=== PATIENT | male | born 2000 | race Caucasian/White ===

== ENCOUNTER 2020-12-07 15:04 | Outpatient (CLI) | payer OTHER, SELFPAY ==
--- NOTE | ~2020-12-07 | XR_ITS ---
EXAMINATION: XR wrist RT min 3V DATE: 12/07/2020 15:21 INDICATION: Chronic ulnar-sided right wrist pain with numbness extending into the fingers. TECHNIQUE: Posteroanterior, ulnar deviation, oblique, and lateral views of the right wrist were obtai lesley. COMPARISON: 04/26/2016 FINDINGS: Alignment is normal. No fracture. Joint spaces are normal. Soft tissues are unremarkable. IMPRESSION: 1. Negative right wrist radiographs. Reviewed, dictated and finalized at location A.
== END 2020-12-07 15:05 | disposition home or self-care (01) ==
PROVIDERS: PCP Family Medicine; Visit Provider Nurse Practitioner Family
DX: M25.531 Pain in right wrist (principal)
CPT/HCPCS: 73110

== ENCOUNTER → 2021-06-07 16:39 | Outpatient (CLI) | payer OTHER, SELFPAY ==
--- NOTE | ~2021-06-07 | XR_ITS ---
XR wrist RT min 3V DATE: 06/07/2021 16:51 INDICATION: Right wrist pain TECHNIQUE: 4 views COMPARISON: 12/07/2020 right wrist FINDINGS: No fracture or dislocation, periosteal reaction or bone destruction. Joint spaces are prese rved. No erosive change or chondrocalcinosis. IMPRESSION: Negative Reviewed, dictated and finalized at location A. IMPRESSION: Negative
== END ==
PROVIDERS: PCP Nurse Practitioner Family; Visit Provider Family Medicine
DX: M25.531 Pain in right wrist (principal)
CPT/HCPCS: 73110

== ENCOUNTER 2024-09-04 13:20 | Emergency (ER) | payer OTHER, SELFPAY ==
--- OUTSIDE RECORDS SUMMARY | 2024-09-04 13:23 | XMS_ITS | Clinical Summary ---
Author Organization [facility] Address [address] [place] [address] Care Team Providers Care Criminal Defense Attorney Name Role Phone Aspen Garnica MD Unavailable [phone] Aspen Garnica MD Primary Care Provider [phone] Source Comments [facility],non-owned Affiliates and Associated Physician Practices is amultiple site organization consisting of ambulatory clinics and hospital sitesin [place], [place], [place] and [place]. This disclosure is being madepursuant to the Care Everywhere program and may not contain all information available regarding this patient. Last updated 18.[facility] Allergies No known active allergies Medications * Be aware that medications may not be up to date on this document. Alwaysverify current medications with the patient. Medication Sig Dispensed Refills Start Date End Date Status fexofenadine (RUTH) 180 MG tablet Take 180 mg by mouth once daily Reported on 10/09/2016 Active Active Problems No known active problems Immunizations Name Administration Dates Next Due DTaP VACCINE IM (6wk-6yrs) 01/18/2005,,2000,08/13,2000 HEP A PEDS 2 DOSE 04/24/2011,04/10/2007 HEP B VACCINE, PED/ADOL 2000,2000, HIB BOOSTER 11/06/2001, 1,2000,05/09 Human Papilloma Virus Iftikhar valent Vaccine 09/15/2012,05/12/2012,03/14/2012 Influenza Nasal 05/12/2012 MENINGOCOCCAL CONJUGATE (MCV4P) 10/12/2016,03/14 MMR 01/18/2005,03/10/2001 PNEUMOCOCCAL CONJ, PEDS 2000,2000, POLIO IPV 01/18/2005, 1,2000,05/09 PPD 01/18/2005,03/10/2001 TDAP (7yrs+) 04/24/2011 VARICELLA 04/10/2007,06/19/2001 Family History Medical History Relation Name Comments Allergies Brother Allergies Father Hypertension Father Heart Disease Maternal Grandfather Stroke Maternal Grandfather Cancer Maternal Grandmother Lung Thyroid Disease Maternal Grandmother Allergies Mother Migraine Mother Other Mother Hearing Loss Thyroid Disease Mother Heart Disease Paternal Grandfather Allergies Sister Relation Name Status Comments Brother Father Maternal Grandfather Maternal Grandmother Mother Paternal Grandfather Sister Social History Tobacco Use Types Packs/Day Years Used Date Smoking Tobacco: Never Smokeless Tobacco: Never Alcohol Use Standard Drinks/Week Comments Not Asked 0 (1 standard drink = 0.6 oz pur e alcohol) Sex and Gender Information Value Date Recorded Sex Assigned at Not on file Gender Identity Not on file Sexual Orientation Not on file Last Filed Vital Signs Vital Sign Reading Time Taken Comments Blood Pressure 126/68 10/09/2016 1:32 PM SUPERVISOR HOME ENERGY CONSULTANT Pulse 72 10/10/2015 4:06 PM SUPERVISOR HOME ENERGY CONSULTANT irreg ular Temperature 37.3 ??C (99.1 ??F) 10/12/2016 3:48 PM CS T Respiratory Rate - - Oxygen Saturation - - Inhaled Oxygen Concentration - - Weight 66.9 kg (147 lb 6.4 oz) 10/09/2016 1:32 P M SUPERVISOR HOME ENERGY CONSULTANT Height 177.8 cm (5' 10 ) 10/09/2016 1:32 PM SUPERVISOR HOME ENERGY CONSULTANT Body Mass Index 21.15 10/09/2016 1:32 PM SUPERVISOR HOME ENERGY CONSULTANT Plan of Treatment Health Maintenance Due Date Last Done Comments HIV SCREENING 2015 HEPATITIS C SCREENING 03/05/2018 DTAP/TDAP/TD VACCINES (7 - Td or Tdap) 04/24/2021 04/24/2011, 01/18/2005, 11/06/2001, Additional history exists COVID-19 VACCINE ( season) 2024 INFLUENZA VACCINE (#1) 2024 05/12/2012 DEPRESSION SCREENING 08/05/2024 ZOSTER VACCINE (1 of 2) 2050 HEPATITIS B VACCINE Completed 2000, 2000, 2000 PNEUMOCOCCAL VACCINE Aged Out 2000, 2000, 2000 No longer eligible based on patient's age to complete this topic HIB VACCINE Completed 11/06/2001, 12/03, 2000, Additional history exists HPV VACCINE Completed 09/15/2012, 03/2012, 03/14/2012 MENINGOCOCCAL VACCINE Completed 10/12/2016, 012 MENINGOCOCCAL (Group B) VACCINE Aged Out No longer eligible based on patient's age to complete this topic Goals Goal Patient Goal Type Associated Problems Recent Progress Patient-Stated? Author [facility] Lifestyle: Use safety retraint in car Lifestyle On track( 017 1:34 PM SUPERVISOR HOME ENERGY CONSULTANT) Karen Jo RN Care Teams Criminal Defense Attorney Relationship Specialty Start Date End Date Aspen Garnica MD PCP - Pediatrics 08/22/09 Aspen Garnica MD PCP - General Pediatrics 02/21/12
--- OUTSIDE RECORDS SUMMARY | 2024-09-04 13:23 | XMS_ITS | Referral Summary ---
Author Organization [email or web address] Address [address] [place] [address] Care Team Providers Care Prn Occupational Therapist Name Role Phone Aspen Garnica MD Unavailable [phone] Aspen Garnica MD Primary Care Provider [phone] Source Comments [facility],non-owned Affiliates and Associated Physician Practices is amultiple site organization consisting of ambulatory clinics and hospital sitesin [place], [place], [place] and [place]. This disclosure is being madepursuant to the Care Everywhere program and may not contain all information available regarding this patient. Last updated 18.[email or web address] Allergies No known active allergies Medications * [...] PPD 01/18/2005,03/10/2001 TDAP (7yrs+) 04/24/2011 VARICELLA 04/10/2007,06/19/2001 Social History Tobacco Use Types Packs/Day Years [...] Comments Blood Pressure 126/68 10/09/2016 1:32 PM DISTRICT MANAGER Pulse 72 10/10/2015 4:06 PM DISTRICT MANAGER irreg ular Temperature 37.3 ??C (99.1 ??F) 10/12/2016 3:48 PM CS T Respiratory Rate - - Oxygen Saturation - - Inhaled Oxygen Concentration - - Weight 66.9 kg (147 lb 6.4 oz) 10/09/2016 1:32 P M DISTRICT MANAGER Height 177.8 cm (5' 10 ) 10/09/2016 1:32 PM DISTRICT MANAGER Body Mass Index 21.15 10/09/2016 1:32 PM DISTRICT MANAGER Plan of Treatment Not on file Goals Goal Patient Goal Type Associated Problems Recent Progress Patient-Stated? Author [facility] Lifestyle: Use safety retraint in car Lifestyle On track( 017 1:34 PM DISTRICT MANAGER) Karen Jo, ULYSSES Care Teams Prn Occupational Therapist Relationship Specialty Start Date End Date Aspen Garnica MD PCP - Pediatrics 08/22/09 Aspen Garnica MD PCP - General Pediatrics 02/21/12
--- OUTSIDE RECORDS SUMMARY | 2024-09-04 13:23 | XMS_ITS | Patient Health Summary ---
Author Organization [facility] Address [address] [place] [address] Care Team Providers Care Supervisor Taping Name Role Phone Aspen Garnica MD Unavailable [phone] Aspen Garnica MD Primary Care Provider [phone] Note from [facility],non-owned Affiliates and Associated Physician Practices is amultiple site organization consisting of ambulatory clinics and hospital sitesin [place], [place], [place] and [place]. This disclosure is being madepursuant to the Care Everywhere program and may not contain all information available regarding this patient. Last updated 18.[facility] Allergies No known active allergies Medications * Be aware that medications may not be up to date on this document. Alwaysverify current medications with the patient. * fexofenadine (RUTH) 180 MG tablet Take 180 mg by mouth once daily Reported on 10/09/2016 Active Problems No known active problems Immunizations * DTaP VACCINE IM (6wk-6yrs)(Given 01/18/2005, 11/06/2001, 2000, 2000, 2000) * HEP A PEDS 2 DOSE(Given 04/24/2011, 04/10/2007) * HEP B VACCINE, PED/ADOL(Given 2000, 2000, 2000) * HIB BOOSTER(Given 11/06/2001, 2000, 2000, 2000) * Human Papilloma Virus Quadrivalent Vaccine(Given 09/15/2012, 05/12/2012, 03/14/2012) * Influenza Nasal(Given 05/12/2012) * MENINGOCOCCAL CONJUGATE (MCV4P)(Given 10/12/2016, 03/14/2012) * MMR(Given 01/18/2005, 03/10/2001) * PNEUMOCOCCAL CONJ, PEDS(Given 2000, 2000, 2000) * POLIO IPV(Given 01/18/2005, 06/19/2001, 2000, 2000) * PPD(Given 01/18/2005, 03/10/2001) * TDAP (7yrs+)(Given 04/24/2011) * VARICELLA(Given 04/10/2007, 06/19/2001) Social History Tobacco Use Types Packs/Day Years [...] Comments Blood Pressure 126/68 10/09/2016 1:32 PM OIL WELL SHOOTER Pulse 72 10/10/2015 4:06 PM OIL WELL SHOOTER irreg ular Temperature 37.3 ??C (99.1 ??F) 10/12/2016 3:48 PM CS T Respiratory Rate - - Oxygen Saturation - - Inhaled Oxygen Concentration - - Weight 66.9 kg (147 lb 6.4 oz) 10/09/2016 1:32 P M OIL WELL SHOOTER Height 177.8 cm (5' 10 ) 10/09/2016 1:32 PM OIL WELL SHOOTER Body Mass Index 21.15 10/09/2016 1:32 PM OIL WELL SHOOTER Procedures * ANNIA-BULL VIRUS ANTIBODY PANEL(Performed 10/22/2014) Performed for Pharyngitis, acute, Fever presenting with conditions classified elsewhere * MONONUCLEOSIS SCREEN(Performed 10/22/2014) Performed for Pharyngitis, acute, Fever presenting with conditions classified elsewhere * CBC W AUTO DIFFERENTIAL(Performed 10/22/2014) Performed for Pharyngitis, acute, Fever presenting with conditions classified elsewhere * DRUG ABUSE URINE SCREEN 10(Performed 08/20/2014) Performed for Sleeping difficulties * XR FINGER(S) RIGHT(Performed 07/09/2013) Performed for Injury of right thumb * INFLUENZA A+B - POINT OF CARE (AMB)(Performed 09/16/2012) Performed for Back pain, Fever presenting with conditions classified elsewhere * XR LUMBAR SPINE 4VW OR MORE(Performed 09/16/2012) Performed for Back pain Results * MONONUCLEOSIS SCREEN (10/22/2014 4:51 PM CDT) Mononucleosis Test Qualitative Negative Negative [facility] INSURANCE BILL Comment: The sensitivity of Heterophile antibody testing is 80-90%. Annia Bull IgM testing offers higher sensitivity. Blood specimen (specimen) BLOOD SPECIMEN / Unknown 10/22/2014 4:51 PM CDT 10/22/2014 7:06 PM CDT Narrative Resulting Agency Comment [facility] [address] ??[facility] [phone] Aspen Garnica MD LAB - CHEMISTRY CARL MOORE [facility] INSURANCE BILL * ANNIA-BAR VIRUS PANEL (10/22/2014 4:51 PM CDT) Pathologist [facility] Annia-Bull Viral Capsid Antigen Antibody IgM <36.0 0.0 - 35.9 U/mL [facility] INSURANCE BILL Comment: ?Negative ?<36.0 ?Equivocal 36.0 - 43.9 ?Positive ?>43.9 Annia-Bull Virus Early Antigen Antibody IgG <9.0 0.0 - 8.9 U/mL [facility] INSURANCE BILL Comment: ?Negative ?< 9.0 ?Equivocal ??9.0 - 10.9 ?Positive ?>10.9 Annia-Bull Viral Capsid Antigen Antibody IgG <18.0 0.0 - 17.9 U/mL [facility] INSURANCE BILL Comment: ?Negative ?<18.0 ?Equivocal 18.0 - 21.9 ?Positive ?>21.9 Annia-Bull Virus Antibody IgG Nuclear Antigen <18.0 0.0 - 17.9 U/mL [facility] INSURANCE BILL Comment: ?Negative ?<18.0 ?Equivocal 18.0 - 21.9 ?Positive ?>21.9 Interpretation [facility] INSURANCE BILL Comment: ?EBV Interpretation Chart ?. ? Interpretation ?? EBV-IgM ??EA(D)-IgG ??VCA-IgG ??EBNA-IgG ?. ? EBV Seronegative ?- ?- ? - ?- ? Early Phase ? + ?- ? - ?- ? Acute Primary ? + ? +or- ? + ?- ? Infection ? Convalescence/Past ??- ? +or- ? + ?+ ? Infection ? Reactivated ?+or- ?+ ? + ?+ ? Infection ?+ Antibody Present ?- Antibody Absent Blood specimen (specimen) BLOOD SPECIMEN / Unknown 10/22/2014 4:51 PM CDT 10/22/2014 7:06 PM CDT Narrative Resulting Agency Comment [facility] [place] [address] ??[place] [phone] Aspen Garnica MD LAB - CHEMISTRY CARL MOORE [facility] INSURANCE BILL * CBC W AUTO DIFFERENTIAL (10/22/2014 4:51 PM CDT) WBC 6.1 3.4 - 10.8 x10E3/uL [facility] INSURANCE BILL RBC 5.33 4.14 - 5.80 x10E6/uL [facility] INSURANCE BILL Hemoglobin 15.7 12.6 - 17.7 g/dL [facility] INSURANCE BILL Hematocrit 46.1 37.5 - 51.0 % [facility] INSURANCE BILL MCV 87 79 - 97 fL [facility] INSURANCE BILL MCH 29.5 26.6 - 33.0 pg [facility] INSURANCE BILL MCHC 34.1 31.5 - 35.7 g/dL [facility] INSURANCE BILL RDW 13.1 12.3 - 15.4 % [facility] INSURANCE BILL Platelet Count 230 150 - 379 x10E3/uL [facility] INSURANCE BILL Granulocytes % 62 % [facility] INSURANCE B[facility] Lymphocytes % 21 % [facility] INSURANCE B[facility] Monocytes % 13 % [facility] INSURANCE BILL Eosinophils % 4 % [facility] INSURANCE BILL Basophils % 0 % [facility] INSURANCE BILL Immature Cells NOT NEEDED [facility] INSURANCE BILL Comment:Ancillary determined the test is not needed Granulocytes Absolute 3.8 1.4 - 7.0 x10E3/uL [facility] INSURANCE BILL Lymphocytes Absolute 1.3 0.7 - 3.1 x10E3/uL [facility] INSURANCE BILL Monocytes Absolute 0.8 0.1 - 0.9 x10E3/uL [facility] INSURANCE BILL Eosinophils Absolute 0.2 0.0 - 0.4 x10E3/uL [facility] INSURANCE BILL Basophils Absolute 0.0 0.0 - 0.3 x10E3/uL [facility] INSURANCE BILL Immature Granulocytes 0 % [facility] INSURANCE BILL Immature Granulocytes Absolute 0.0 0.0 - 0.1 x10E3/uL [facility] INSURANCE BILL nRBC NOT NEEDED [facility] INSURANCE BILL Comment:Ancillary determined the test is not needed Comment Hematology NOT NEEDED [facility] INSURANCE BILL Comment:Ancillary determined the test is not needed Blood specimen (specimen) BLOOD SPECIMEN / Unknown 10/22/2014 4:51 PM CDT 10/22/2014 7:06 PM CDT Narrative Resulting Agency Comment [facility] ??[facility] [phone] Aspen Garnica MD LAB - HEMATOLOGY ORD ERABLES [facility] INSURANCE BILL * DRUG ABUSE URINE SCREEN 10 (08/20/2014 3:06 PM OIL WELL SHOOTER) Amphetamines Screen Urine Negative Cutoff=10 00 ng/mL [facility] INSURANCE BILL Barbiturates Screen Urine Negative Cutoff=20 0 ng/mL [facility] INSURANCE BILL Benzodiazepines Screen Urine Negative Cutoff=20 0 ng/mL [facility] INSURANCE BILL Cannabinoids Screen Urine Negative Cutoff=20 ng/mL [facility] INSURANCE BILL Cocaine Negative Cutoff=30 0 ng/mL [facility] INSURANCE BILL Opiate Screen Urine Negative Cutoff=30 0 ng/mL [facility] INSURANCE BILL Comment:Opiate test includes Codeine, Morphine, Hydromorphone, Hydrocodone. Oxycodone/Oxymorpho ne Urine Negative Cutoff=10 0 ng/mL [facility] INSURANCE BILL Comment:Test includes Oxycod one and Oxymorphone Phencyclidine Negative Cutoff=25 ng/mL [facility] INSURANCE BILL Methadone Negative Cutoff=30 0 ng/mL [facility] INSURANCE BILL Propoxyphene Screen Urine Negative Cutoff=30 0 ng/mL [facility] INSURANCE BILL Creatinine Urine 161.7 20.0 - 300.0 mg/dL [facility] INSURANCE BILL pH Urine 5.7 4.5 - 8.9 [facility] INSURANCE BILL Note [facility] INSURANCE BILL Comment: This assay provides a preliminary unconfirmed analytical test result that may be suitable for clinical management of patients in certain situations. Drug-test results should be interpreted in the context of clinical information. Patient metabolic variables, specific drug chemistry, and specimen characteristics can affect test outcome. Technical consultation is available if a test result is inconsistent with an expected outcome. ([email or web address] or call toll-free [phone]) Urine specimen (specimen) URINE / Unknown 08/20/2014 3:06 PM OIL WELL SHOOTER 08/20/2014 5:54 PM OIL WELL SHOOTER Narrative Resulting Agency Comment [facility] [place] [address] ??[place] [phone] Keegan Hutchins MD LAB - URINE CHEMI STRY ORDERABLES [facility] INSURANCE BILL * XR FINGER(S) RIGHT (07/09/2013) Anatomical Region Laterality Modality Wrist / Hand, Upper Extremity Ot her Aspen Garnica MD DIAGNOSTIC IMAGING O RDERABLES * INFLUENZA A+B - POINT OF CARE (AMB) (09/16/2012 10:30 AM OIL WELL SHOOTER) Influenza A Antigen Rapid Negative Negative Influenza B Antigen Rapid Negative Influenza Internal Control NEGATIVE - POSITIVE Influenza Lot Number Influenza Expiration Date Nasopharyngeal swab (specimen) SPECIMEN FROM NASOPHARYNGEAL STRUCTURE / Unknown Shu Cao MD LAB - POINT OF CARE ORDERABLES * XR LUMBAR SPINE 4+ VW (09/16/2012) Anatomical Region Laterality Modality Spine Other Shu Cao MD DIAGNOSTIC IMAGING O RDERABLES Care Teams Supervisor Taping Relationship Specialty Start Date End Date Aspen Garnica MD PCP - Pediatrics 08/22/09 Aspen Garnica MD PCP - General Pediatrics 02/21/12
[2024-09-04 13:49] VITALS: BP 129/82; PULSE 60; RESP 16; TEMP 36.4; O2SAT 100
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
[2024-09-04 17:07] LABS: Basophils Percent Auto 0.4 % (0.2-1.2); Hematocrit 48.6 % (42.0-52.0); Hemoglobin 16.6 g/dL (14.0-18.0); Immature Granulocyte Absolute 0.03 K/mm3 (0.00-0.031); Immature Granulocyte Percent A 0.4 % (0-0.5); Lymphocytes Absolute Auto 1.75 K/mm3 (0.9-3.2); Lymphocytes Percent Auto 24.6 % (18.3-44.2); Mean Corpuscular HGB Conc 34.2 g/dl (32-36); Mean Corpuscular Hemoglobin 29.6 pg (26-34); Mean Corpuscular Volume 86.8 fl (80-100); Mean Platelet Volume 9.3 fl (7.4-10.4); Monocytes Absolute Auto 0.5 K/mm3 (0.1-0.6); Monocytes Percent Auto 6.7 % (2.6-8.5); Neutrophils Absolute Auto 4.8 K/mm3 (1.3-6.7); Neutrophils Percent Auto 67.9 % (45.5-73.1); Platelet Count Result 210 k/mm3 (150-375); Red Cell Distribution Width 12.9 % (11.5-14.5); White Blood Count 7.1 K/mm3 (4.5-10.0)
[2024-09-04 17:17] LABS: Alanine Aminotransferase 32 U/L (6-50); Albumin Level 4.8 g/dL (3.5-5.1); Alkaline Phosphatase 67 U/L (38-126); Anion Gap 13 mmol/L (4-12); Aspartate Amino Transferase 26 U/L (17-59); Bilirubin,Total 1.4 mg/dL (0.2-1.3); Blood Urea Nitrogen 13 mg/dL (9-20); Calcium 9.6 mg/dL (8.4-10.2); Carbon Dioxide 29 mmol/L (22-30); Chloride 100 mmol/L (98-107); Estimated CRCL calculation 117 ml/min; Estimated Glomerular Filt Rate > 60; Glucose 130 mg/dL (65-110); Lipase 75 U/L (23-300); Sodium 142 mmol/L (137-145)
--- NOTE | 2024-09-04 19:55 | PC.NURSE ---
Pt verbalized not wanting to wait to be seen by a provider. This rn explained to patient the risks of leaving prior to seeing a provider. pt verbalized understanding of risks and stated he was still wanting to leave. Pt asked about the patient portal. this rn provided patient with information on the patient portal along with a pamphlet. this rn removed patient IV access at this time. IV catheter intact upon removal.
== END 2024-09-04 21:25 | disposition left against medical advice (07) ==
PROVIDERS: Emergency Provider Physician Assistant; PCP Nurse Practitioner Family
DX: R10.30 Lower abdominal pain, unspecified (principal); Z86.16 Personal history of COVID-19
CPT/HCPCS: 36415; 80053; 83690; 85025; 99283